=== PATIENT | female | born 1980 | race Two or more races ===

== ENCOUNTER 2021-07-26 23:27 | Inpatient (IN) | payer OTHER ==
[~2021-07-26] VITALS: Ht 160 cm; Wt 80.7 kg
[2021-07-27 00:28] LABS: HEMOGLOBIN 14.6 gm/dl (12.3-15.3); RED BLOOD COUNT 4.83 M/UL (4.00-5.10); WHITE BLOOD COUNT 18.7 K/UL (4.5-11.0)
[2021-07-27 01:01] LABS: BUN/CREATININE RATIO 20 (0-10)
[2021-07-27] MEDS ORDERED: HYDROCODON-ACE1 EAC4 PO (03:13)
[2021-07-27 06:04] LABS: HEMOGLOBIN 13.6 gm/dl (12.3-15.3); RED BLOOD COUNT 4.55 M/UL (4.00-5.10)
[2021-07-27 06:05] LABS: WHITE BLOOD COUNT 13.4 K/UL (4.5-11.0)
[2021-07-27 06:29] LABS: BUN/CREATININE RATIO 19 (0-10)
== END 2021-07-27 11:48 | disposition home or self-care (01) | DRG 563 ==
LOC: ER1 23:27 → CDU 07-27 04:05 → MED SURG 4 07-27 04:05
PROVIDERS: Student in an Organized Health Care Education/Training Program; ADMIT Internal Medicine
PROC: B24BZZZ Ultrasonography of Heart with Aorta (ICD-10-PCS; principal; 2021-07-27)
PROC: 0QSGXZZ Reposition Right Tibia, External Approach (ICD-10-PCS; 2021-07-27)
DX: S82.841A Displaced bimalleolar fracture of right lower leg, initial encounter for closed fracture (principal); I10 Essential (primary) hypertension; I95.1 Orthostatic hypotension; E87.6 Hypokalemia; E78.5 Hyperlipidemia, unspecified; D72.829 Elevated white blood cell count, unspecified; E86.0 Dehydration; K21.9 Gastro-esophageal reflux disease without esophagitis; Z79.82 Long term (current) use of aspirin; V49.9XXA Car occupant (driver) (passenger) injured in unspecified traffic accident, initial encounter; Z79.899 Other long term (current) drug therapy; Z90.49 Acquired absence of other specified parts of digestive tract
CPT/HCPCS: ECHO; 27810; 70450; 71260; 72125; 73562; 73590; 73600; 73610; 73630; 80053; 80061; 82550; 82553; 82962; 83036; 83735; 84439; 84443; 84484; 85025; 93005; 93306; 99152; 99285; J2704; Q9967

== ENCOUNTER → 2021-08-16 | Day surgery (SDC) | payer OTHER ==
[~2021-08-16] VITALS: Ht 160 cm; Wt 77.6 kg
[~2021-08-16] MED LIST: HYDROCODON-ACE1 EAC2 PO; HYDROCODON-ACE1 EAC4 PO; LISINOPRIL-HCT1 EAC1 PO
[2021-08-16 08:45] LABS: HEMOGLOBIN 14.5 gm/dl (12.3-15.3); RED BLOOD COUNT 4.76 M/UL (4.00-5.10); WHITE BLOOD COUNT 11.7 K/UL (4.5-11.0)
[2021-08-16 09:30] LABS: BUN/CREATININE RATIO 18 (0-10)
== END | disposition home or self-care (01) ==
LOC: OR 08-15 10:45
PROVIDERS: Orthopaedic Surgery
DX: S82.841A Displaced bimalleolar fracture of right lower leg, initial encounter for closed fracture (principal); V89.2XXA Person injured in unspecified motor-vehicle accident, traffic, initial encounter; G89.18 Other acute postprocedural pain; I10 Essential (primary) hypertension; K21.9 Gastro-esophageal reflux disease without esophagitis; Z79.899 Other long term (current) drug therapy
CPT/HCPCS: 36415; 73610; 76000; 80048; 84703; 85025; C1713; J1100; J2250; J2370; J2405; J2704; J2710; J2795; J3010